=== PATIENT | male | born 1980 | race Caucasian/White ===

== ENCOUNTER → 2016-11-16 | Outpatient (CLI) | payer OTHER | LOC: RT 11:57 | DX: R55 Syncope and collapse (principal) ==

== ENCOUNTER 2016-11-25 23:33 | Emergency (ER) | payer OTHER | END 2016-11-26 02:39 | disposition left against medical advice (07) | LOC: ER1 23:33 | DX: Z53.21 Procedure and treatment not carried out due to patient leaving prior to being seen by health care provider (principal) ==